=== PATIENT | female | born 1970 | race Two or more races ===

== ENCOUNTER 2024-12-01 18:51 | Emergency (ER) | payer OTHER ==
--- NOTE | 2024-12-01 20:14 | ED.PDOC ---
HPI (NEURO) HPI Comments 53 year old female presents to the ED with a chief complaint of dizziness onset today. Patient's spouse states patient began experiencing dizziness, generalized weakness, numbness on bilateral hands with a cramping sensation, shortness of breath. Spouse checked patient's BP at home, was 178 systolic, brought her to ED. Upon ED arrival BP was 173/84 and O2 sat was 100%. PMHx HLD. Denies nausea, vomiting, diarrhea, headache,chest pain, fevers, chills. No other symptoms or modifying factors present at this time. Chief Complaint: Dizziness Time Seen by MD: 19:50 Reviewed Notes: Medications, Allergies Information Source: Patient, Spouse Mode of Arrival: Wheelchair Severity: Moderate Timing: Hours Duration: Since onset Prehospital treatment: None Weakness Location: Generalized Onset: At rest Circumstances: Spontaneous Symptoms: Weakness, Numbness Modifying factors: Nothing Associated Signs and Symptoms: Weakness, Numbness Past Medical History PAST MEDICAL HISTORY: High Lipids Surgical History: Denies all surgeries [employer] History: No Pertinent [employer] WORKER History Family History Family History: Reviewed,noncontributory to illness, No family hx of Cancer, No family hx of DM, No family hx of Heart yoana, No family hx of HTN, No family hx ofKidney yoana, No family hx of Liver yoana, No family hx of Lung yoana, No family hx of Stroke Social History Smoker: Non-Smoker Alcohol: Denies ETOH Use Drugs: Denies Drug Use Lives In: Home Constitutional: reports: weakness; denies: chills, diaphoresis, fatigue, fever, malaise, sweats, others EENTM: denies: blurred vision, double vision, ear bleeding, ear discharge, ear drainage, ear pain, ear ringing, eye pain, eye redness, hearing loss, mouth pain, mouth swelling, nasal discharge, nose bleeding, nose congestion, nose pain, photophobia, tearing, throat pain, throat swelling, voice changes, others Respiratory: reports: shortness of breath; denies: cough, hemoptysis, orthopnea, SOB at rest, SOB with excertion, stridor, wheezing, others Cardiovascular: denies: chest pain, dizzy spells, diaphoresis, Dyspnea on exertion, edema, irregular heart beat, left arm pain, lightheadedness, palpitations, PND, syncope, others Gastrointestinal: denies: abdomen distended, abdominal pain, blood streaked bowels, constipated, diarrhea, dysphagia, difficulty swallowing, hematemesis, melena, nausea, poor appetite, poor fluid intake, rectal bleeding, rectal pain, vomiting, others Genitourinary: denies: abnormal vagina bleeding, burning, dyspareunia, dysuria, flank pain, frequency, hematuria, incontinence, pain, , vagina discharge, urgency, others Neurological: reports: dizziness, numbness (bilateral hands); denies: fainting, headache, left sided numbness, left sided weakness, paresthesia, pre-existing deficit, right sided numbness, right sided weakness, seizure, speech problems, tingling, tremors, weakness, others Musculoskeletal: denies: back pain, gout, joint pain, joint swelling, muscle pain, muscle stiffness, neck pain, others Integumetry: denies: bruises, change in color, change in hair/nails, dryness, laceration, lesions, lumps, rash, wounds, others Allergic/Immunocompromised: denies: Difficulty Healing, Frequent Infections, Hives, Itching, others Hematologic/Lymphatic: denies: anemia, blood clots, easy bleeding, easy bruising, swollen glands, others Endocrine: denies: excessive hunger, excessive sweating, excessive thirst, excessive urination, flushing, intolerance to cold, intolerance to heat, unexplained weight gain, unexplained weight loss, others Psychiatric: denies: anxiety, bipolar disorder, depression, hopeless, panic disorder, schizophrenia, sleepless, suicidal, others All Other Systems: Reviewed and Negative Physical Exam General Appearance: No Apparent Distress, Normal HEENT: Normal ENT Inspection, Pharynx Normal, TMs Normal Neck: Full Range of Motion, Non-Tender, Normal, Normal Inspection Respiratory: Chest Non-Tender, Lungs Clear, No Accessory Muscle Use, No Respiratory Distress, Normal Breath Sounds Cardiovascular: No Edema, No JVD, No Murmur, No Gallop, Normal Peripheral Pulses, Regular Rate/Rhythm Breast Exam: Deferred Gastrointestinal: No Organomegaly, Non Tender, No Pulsatile Mass, Normal Bowel Sounds, Soft Genitalia: Deferred Pelvic: Deferred Rectal: Deferred Extremities: No calf tenderness, Normal capillary refill, Normal inspection, Normal range of motion, Non-tender, No pedal edema Musculoskeletal : Apperance: Normal Neurologic: Alert, [employer] II-XII nml as Tested, No Motor Deficits, Normal Affect, Normal Mood, No Sensory Deficits Cerebellar Function: Normal Reflexes: Normal Skin: Dry, Normal Color, Warm Lymphatic: No Adenopathy Was a procedure done? Was a procedure done?: No X-Ray, Labs, Meds, VS Vital Signs Date Time Temp Pulse Resp B/P (MAP) Pulse Ox O2 Delivery O2 Flow Rate FiO2 12/02/24 02:39 102 18 98 Room Air* 0 21 12/02/24 02:39 98.7 102 18 135/81 (99) 98 98.7 12/01/24 23:10 98.2 147 24 144/84 (104) 100 98.2 12/01/24 19:05 126 12/01/24 18:52 98.3 135 20 173/84 100 98.3 Lab Test 12/02/24 01:13 12/01/24 20:58 12/01/24 20:01 Range/Units Urine Color Colorless Yellow Urine Clarity Clear Clear Urine pH 6.0 5.0-9.0 Urine Specific [place] 1.042 H 1.001-1.035 Urine Protein Negative Negative Urine Ketones Negative Negative Urine Blood Trace H Negative /uL Urine Nitrite Negative Negative Urine Bilirubin Negative Negative Urine Urobilinogen Normal Negative mg/dL Urine Leukocyte Esterase Negative Negative /uL Urine RBC 2 0 - 4 /hpf Urine Microscopic WBC 2 0-5 /HPF Urine Squamous Epithelial Cells None seen <5 /hpf Urine Bacteria None seen None Seen /hpf Urine Glucose Normal Normal mg/dL Urine Opiates Screen Neg NEGATIVE Urine Fentanyl Screen Neg NEGATIVE Urine Barbiturates Screen Neg NEGATIVE Urine Phencyclidine Screen Neg NEGATIVE Urine Amphetamines Screen Neg NEGATIVE Urine Benzodiazepines Screen Neg NEGATIVE Urine Cocaine Screen Neg NEGATIVE Urine Cannabinoids Screen Neg NEGATIVE Troponin I High Sensitivity 6 4 </=34 ng/L White Blood Count 8.6 4.4-10.8 10^3/uL Red Blood Count 4.62 4.0-5.20 10^6/uL Hemoglobin 13.8 12.2-16.2 g/dL Hematocrit 39.4 36.0-46.0 % Mean Corpuscular Volume 85.2 80.0-100.0 fL Mean Corpuscular Hemoglobin 29.9 28.0-32.0 pg Mean Corpuscular Hemoglobin Concent 35.0 32.0-36.0 g/dL Red Cell Distribution Width 14.2 11.8-14.3 % Platelet Count 266 140-450 10^3/uL Mean Platelet Volume 9.0 6.9-10.8 fL Neutrophils (%) (Auto) 76.7 37.0-80.0 % Lymphocytes (%) (Auto) 17.4 10.0-50.0 % Monocytes (%) (Auto) 5.4 0.0-12.0 % Eosinophils (%) (Auto) 0.1 0.0-7.0 % Basophils (%) (Auto) 0.4 0.0-2.0 % Neutrophils # (Auto) 6.6 1.6-8.6 10 ^3/uL Lymphocytes # (Auto) 1.5 0.4-5.4 10 ^3/uL Monocytes # (Auto) 0.5 0-1.3 10 ^3/uL Eosinophils # (Auto) 0 0-0.8 10 ^3/uL Basophils # (Auto) 0 0-0.2 10 ^3/uL Nucleated Red Blood Cells 0.0 % Sodium Level 131 L 136-145 mmol/L Potassium Level 3.5 3.5-5.1 mmol/L Chloride Level 96 L 98-107 mmol/L Carbon Dioxide Level 20 20-31 mmol/L Anion Gap 15 5-15 Blood Urea Nitrogen 9 9-23 mg/dL Creatinine 0.79 0.550-1.02 mg/dL Glomerular Filtration Rate Calc 89 >90 mL/min BUN/Creatinine Ratio 11.4 10.0-20.0 Serum Glucose 142 H 74-106 mg/dL Calcium Level 9.9 8.7-10.4 mg/dL Magnesium Level 1.7 1.6-2.6 mg/dL Total Bilirubin 0.9 0.2-1.0 mg/dL Aspartate Amino Transferase (AST) 25 13-40 U/L Alanine Aminotransferase (ALT) 28 7-40 U/L Alkaline Phosphatase 197 H 46-116 U/L Total Protein 7.5 5.7-8.2 g/dL Albumin 5.1 H 3.2-4.8 g/dL Thyroid Stimulating Hormone (TSH) 1.81 0.55-4.78 uIU/mL Free Thyroxine (T4) Calculated 1.37 0.89-1.76 ng/dL Current Medications Medications (Trade) Dose Ordered Sig/Eliot Route Start Time Stop Time Status Last Admin Sodium Chloride 1,000 ml @ 1,000 mls/hr Q1H ONCE IV 12/01/24 23:15 12/02/24 00:14 DC 12/01/24 23:34 Lorazepam (Ativan Inj) 1 mg ONCE ONCE IV 12/01/24 23:15 12/01/24 23:17 DC 12/01/24 23:34 [place] [address] Ph: [phone] DIAGNOSTIC IMAGING Diagnostic Imaging Report : [id number] Signed PATIENT: VIMAL VAZQUEZCCT: [id number] UNIT: [id number] : 1970 LOC: ER ROOM / BED: / AGE / SEX: 53 / F ADM STATUS: REG ER SERVICE 00 ORDERING PHYSICIAN: SHYAM BLANCO MD PROCEDURE(s): HWOCT - HEAD WITHOUT CONTRAST REASON: VERTIGO ORDER NUMBER(s): [id number], ACCESSION NUMBER(s): [id number] EXAM: CT HEAD WITHOUT CONTRAST INDICATION: VERTIGO TECHNIQUE: CT images of the head were obtained without administration of IV contrast. CT scans at this facility use dose modulation, iterative reconstruction, and/or weight based dosing when appropriate to reduce radiation dose to as low as reasonably achievable. COMPARISON: None FINDINGS: PARENCHYMA: No acute hemorrhage. There is no mass effect, midline shift, or herniation. There is preservation of the zuleta white differentiation. Mild scattered hypoattenuation along the periventricular, centrum semiovale, and deep white matter tracts, which are nonspecific however statistically most likely represent chronic microvascular ischemic change. VENTRICLES: No hydrocephalus. EXTRA-AXIAL SPACES: No extra-axial fluid collections. OTHER: The bony structures are intact. Visualized portions of the paranasal sinuses and mastoid air cells are clear. IMPRESSION: 1. No CT evidence of an acute intracranial abnormality. ATED BY: LELE DORADO MD DICTATED DATE/TIME: 12/01/242052 SIGNED BY: LELE DORADO MD SIGNED DATE/TIME: 12/01/242052 CC: Time of 1ST Reevaluation: 20:20 Reevaluation 1ST: Unchanged Patient Education/Counseling: Diagnosis, Treatment Family Education/Counseling: Diagnosis, Treatment Departure 1 Departure Time of Disposition: 01:00 Impression: Primary Impression: Dizziness Additional Impressions: Hyponatremia Malaise Disposition: HOME / SELF CARE / HOMELESS Condition: Stable e-Prescriptions Lorazepam (Ativan) 0.5 Mg Tab 1 TAB PO DAILY PRN, #15 TAB Prov: SHYAM BLANCO MD 12/02/24 Discharged With: Self, Relative, Spouse Critical Care Note Critical Care Time?: No Stability Stability form required: No I personally scribed for SHYAM BLANCO MD ([email or web address]) on 12/01/24 at 20:14. Electronically submitted by Lauren Adam ([email or web address]). I personally scribed for SHYAM BLANCO MD ([email or web address]) on 12/01/24 at 21:15. Electronically submitted by Lauren Adam ([email or web address]). SHYAM BLANCO MD Dec 01, 2024 20:14
[2024-12-01 20:24] LABS: Hematocrit 39.4 % (36.0-46.0); Hemoglobin 13.8 g/dL (12.2-16.2); Mean Corpuscular Hemoglobin 29.9 pg (28.0-32.0); Mean Corpuscular Volume 85.2 fL (80.0-100.0); Nucleated Red Blood Cells % 0.0 %
[2024-12-01 20:39] LABS: Alanine Aminotransferase 28 U/L (7-40); Anion Gap 15 (5-15); BUN/Creatinine Ratio 11.4 (10.0-20.0); Calcium 9.9 mg/dL (8.7-10.4); Carbon Dioxide 20 mmol/L (20-31); Magnesium 1.7 mg/dL (1.6-2.6); Potassium 3.5 mmol/L (3.5-5.1); Total Protein 7.5 g/dL (5.7-8.2)
[2024-12-01 20:40] LABS: Bilirubin, Total 0.9 mg/dL (0.2-1.0)
--- NOTE | 2024-12-01 20:55 | DVH ---
EXAM: CT HEAD WITHOUT CONTRAST INDICATION: VERTIGO TECHNIQUE: CT images of the head were obtained without administration of IV contrast. CT scans at [facility] facility use dose modulation, iterative reconstruction, and/or weight based dosing when appropriate to reduce radiation dose to as low as reasonably achievable. COMPARISON: None FINDINGS: PARENCHYMA: No acute hemorrhage. There is no mass effect, midline shift, or herniation. There is pres ervation of the zuleta white differentiation. Mild scattered hypoattenuation along the periventricular, centrum semiovale, and deep white matter tracts, which are nonspecific however statistically most li isacc represent chronic microvascular ischemic change. VENTRICLES: No hydrocephalus. EXTRA-AXIAL SPACES: No extra-axial fluid collections. OTHER: The bony structures are intact. Visualized portions of the paranasal sinuses and mastoid air cells are clear. IMPRESSION: 1. No CT evidence of an acute intracranial abnormality.
[2024-12-01 21:03] LABS: Albumin 5.1 g/dL (3.2-4.8); Alkaline Phosphatase 197 U/L (46-116); Blood Urea Nitrogen 9 mg/dL (9-23); Chloride 96 mmol/L (98-107); Glucose 142 mg/dL (74-106); Sodium 131 mmol/L (136-145)
[2024-12-01] MEDS: SODIUM CHLORIDE 0.9% 1,000 ML IV ONE (23:34)
[2024-12-01] MEDS: LORazepam 0.5 MG TAB PO ONE (23:34)
[2024-12-01] MEDS: LORazepam 2MG/ML-1ML VIAL IV ONE (23:34)
[2024-12-02] MEDS: IOHEXOL 350 MG/ML 100ML IJ ONE (00:45)
--- NOTE | 2024-12-02 01:28 | DVH ---
CT ANGIOGRAM CHEST WITH CONTRAST FOR PULMONARY EMBOLUS CLINICAL HISTORY: SOB , tachycardia, r/o PE TECHNIQUE: Helical axial scans of the chest during dynamic intravenous contrast injection. Pulmonary embolism protocol. Multiplanar reformats. Postprocessing MIP images. One or more of the following rad iation dose reduction techniques were used for this examination: automated exposure control, adjustme nt of the mA and/or kV according to patient size, use of iterative reconstruction technique. COMPARISON: None FINDINGS: Pulmonary arteries: Adequate enhancement of the pulmonary arterial system to the proximal segmental l evels. Respiratory motion artifact somewhat limits evaluation distally. As visualized, no discrete fi lling defects to suggest pulmonary embolism are identified at this time. Mediastinum: Heart is normal in size. No pericardial effusion. No mediastinal adenopathy. Lung parenchyma: Mild dependent atelectatic changes. No dominant consolidation. Pleura: No sizable pleural effusion or pneumothorax. Chest wall and axillae: No axillary adenopathy noted. Upper abdomen: No acute findings as visualized. IMPRESSION: No definite evidence of pulmonary embolism. HS:Y
[2024-12-02 02:00] LABS: Urine Protein, UAD Negative (Negative)
[2024-12-02 02:12] LABS: Amphetamine Screen, Urine Neg (NEGATIVE); Barbiturate Scree,Urine Neg (NEGATIVE); Benzodiazephine Screen, Urine Neg (NEGATIVE); Cannabinoid Screen, Urine Neg (NEGATIVE); Cocaine Screen, Urine Neg (NEGATIVE); Opiate Scree,Urine Neg (NEGATIVE); Phencyclidine Screen, Urine Neg (NEGATIVE)
[2024-12-02] MEDS ORDERED: LORA-655 PO (02:19)
[2024-12-02 02:39] VITALS: BP 135/81; PULSE 102; RESP 18; TEMP 98.7; O2SAT 98
--- NOTE | 2024-12-02 10:52 | ECG ---
[facility] Test Date: 2024-12-01 Test Time: 19:05:32 Pat Name: RUBY YINGJimmypartment: ED Room: Gender: F Credit Risk Manager: DIMITRIS : 1970 Requested By: SHYAM BLANCO Order Number: [id number] Reading MD: Omar Caban Measurements Intervals [place] Rate: 126 P: 74 NH: 128 QRS: 78 QRSD: 90 T: 14 QT: 301 QTc: 436 Interpretive Statements Sinus tachycardia Borderline ST depression, diffuse leads Electronically Signed On 12-02-2024 13:12:05 PDT by Omar Caban Please click the below link to view image of tracing.
== END 2024-12-02 02:32 | disposition home or self-care (01) ==
LOC: ER 18:55
DX: R42 Dizziness and giddiness (principal); E87.1 Hypo-osmolality and hyponatremia; R53.81 Other malaise; E78.5 Hyperlipidemia, unspecified; Z79.899 Other long term (current) drug therapy
CPT/HCPCS: 36415; 70450; 71275; 80053; 80307; 81001; 83735; 84439; 84443; 84484; 85025; 93005; 96361; 96374; 99285; J2060; J7030; Q9967